=== PATIENT | male | born 1980 | race Two or more races ===

== ENCOUNTER 2023-09-15 12:22 | Emergency (ER) | payer OTHER ==
[~2023-09-15] VITALS: Ht 175.3 cm; Wt 82.6 kg
== END 2023-09-15 16:53 | disposition home or self-care (01) ==
LOC: ER 12:22
DX: S00.83XA Contusion of other part of head, initial encounter (principal); W18.39XA Other fall on same level, initial encounter; Y93.89 Activity, other specified; Y92.59 Other trade areas as the place of occurrence of the external cause; Y99.9 Unspecified external cause status; Z88.0 Allergy status to penicillin